=== PATIENT | male | born 1965 | race Caucasian/White ===

== ENCOUNTER 2022-06-14 21:09 | Emergency (ER) | payer OTHER ==
[2022-06-14] MEDS ORDERED: ASPIRIN 81 MG CHEW (CHILDREN'S ASA) PO ONE (21:30)
--- NOTE | 2022-06-14 21:35 | ED General ---
General Chief Complaint: General Problems/Pain Stated Complaint: SOA - VOMITING - FEVER - CHEST PRESSURE Nursing Triage Note: PT TO ER VIA PRIVATE VEHICLE FROM HOME WITH COMPLAINT OF HOT FLASHES, SOA, AND RIGHT SIDED CHEST PAIN SINCE THIS EVENING. PT IS [employer] AND AROUND ALL KINDS OF PEOPLE PER PATIENT. PT DENIES COVID OR FLU VACCINATIONS. PAIN WAS SHARP IN RIGHT CHEST AT A 7/10. PT DENIES CURRENT CHEST PAIN. Source of Information: Patient Exam Limitations: No Limitations History of Present Illness Date Seen by Provider: Jun 14, 2022 Time Seen by Provider: 21:15 Initial Comments Here with report of several incidences of flashes and shortness of air tonight with activity. He took a shower and was superhot short of breath after that. Ultimately decided to come in to be seen. Complains of some mild right-sided chest pain that has resolved. He does not have that now denies any pain in the past. He is not vaccinated for COVID. States [place] when this happened. States his reports that he has had some increasing shortness of air over time but today's events were abruptly due to. Denies sore throat, runny nose, cough, nausea, vomiting or diarrhea. Timing/Duration: 1-3 Hours Severity: Mild, Moderate Associated Systoms: Chest Pain; No Cough; Fever/Chills; No Headaches, No Nausea/Vomiting; Shortness of Air, Weakness Allergies and Home Medications Allergies Coded Allergies: Penicillins (Verified Allergy, Unknown, 06/14/22) Uncoded Allergies: gammaglobulin (Allergy, Unknown, 06/14/22) Patient Home Medication List Home Medication List Reviewed: Yes Review of Systems Review of Systems Constitutional: see HPI; No chills; fever EENTM: No nose congestion, No throat pain Respiratory: No cough; short of breath Cardiovascular: chest pain (Right-sided and aching but none now. Lasted several minutes); No edema Gastrointestinal: No diarrhea, No nausea, No vomiting Genitourinary: no symptoms reported Musculoskeletal: back pain, muscle pain Skin: no symptoms reported Psychiatric/Neurological: No Symptoms Reported All Other Systems Reviewed Negative Unless Noted: Yes Past Opsfkhg-Oqhkow-Dsiaut Hx Patient Social History Tobacco Use?: No Use of E-Cig and/or Vaping dev: No Substance use?: No Alcohol Use?: Yes Alcohol type: Beer, Hard Liquor Alcohol Frequency: Once in a while Pt feels they are or have been: No Immunizations Up To Date Influenza Vaccine Up-to-Date: No; Not Current Past Medical History Surgeries: No Respiratory: No Cardiac: Yes High Cholesterol, Hypertension Neurological: No Genitourinary: Yes Benign Prostatic Hyperpl Gastrointestinal: No Musculoskeletal: Yes Chronic Back Pain Endocrine: No Family Medical History Reviewed Nursing Family Hx Heart Disease, Hypertension Physical Exam Vital Signs Vital Signs - First Documented 06/14/22 21:17 Temp 36.3 Pulse 73 Resp 20 B/P (MAP) 160/94 (116) Pulse Ox 99 O2 Delivery Room Air Capillary Refill : Less Than 3 Seconds Height, Weight, BMI Height: '" Weight: lbs. oz. kg; BMI Method: General Appearance: No Apparent Distress, WD/WN HEENT: PERRL/EOMI, Pharynx Normal Neck: Non Tender, Supple Respiratory: Lungs Clear, Normal Breath Sounds Cardiovascular: Regular Rate, Rhythm, No Murmur Gastrointestinal: Non Tender, Soft Back: Normal Inspection, No CVA Tenderness, No Vertebral Tenderness Extremity: Normal Range of Motion, Non Tender Neurologic/Psychiatric: Alert, Oriented x3 Skin: Normal Color, Warm/Dry Progress/Results/Core Measures Suspected Sepsis SIRS Temperature: Pulse: 73 Respiratory Rate: 20 Laboratory Tests 06/14/22 21:20: White Blood Count 9.2 Blood Pressure 160 /94 Mean: 116 Laboratory Tests 06/14/22 21:20: Creatinine 0.97, INR Comment 0.9, Platelet Count 299, Total Bilirubin 0.4 Results/Orders Lab Results Laboratory Tests Test 06/14/22 21:20 06/14/22 21:55 Range/Units White Blood Count 9.2 4.3-11.0 10^3/uL Red Blood Count 4.56 4.30-5.52 10^6/uL Hemoglobin 14.0 13.3-17.7 g/dL Hematocrit 41 40-54 % Mean Corpuscular Volume 91 80-99 fL Mean Corpuscular Hemoglobin 31 25-34 pg Mean Corpuscular Hemoglobin Concent 34 32-36 g/dL Red Cell Distribution Width 13.4 10.0-14.5 % Platelet Count 299 130-400 10^3/uL Mean Platelet Volume 9.2 9.0-12.2 fL Immature Granulocyte % (Auto) 0 % Neutrophils (%) (Auto) 60 42-75 % Lymphocytes (%) (Auto) 28 12-44 % Monocytes (%) (Auto) 8 0-12 % Eosinophils (%) (Auto) 3 0-10 % Basophils (%) (Auto) 1 0-10 % Neutrophils # (Auto) 5.6 1.8-7.8 10^3/uL Lymphocytes # (Auto) 2.6 1.0-4.0 10^3/uL Monocytes # (Auto) 0.7 0.0-1.0 10^3/uL Eosinophils # (Auto) 0.3 0.0-0.3 10^3/uL Basophils # (Auto) 0.1 0.0-0.1 10^3/uL Immature Granulocyte # (Auto) 0.0 0.0-0.1 10^3/uL Prothrombin Time 12.7 12.2-14.7 SEC INR Comment 0.9 0.8-1.4 Activated Partial Thromboplast Time 30 24-35 SEC Sodium Level 141 135-145 MMOL/L Potassium Level 3.8 3.6-5.0 MMOL/L Chloride Level 106 98-107 MMOL/L Carbon Dioxide Level 22 21-32 MMOL/L Anion Gap 13 5-14 MMOL/L Blood Urea Nitrogen 25 H 7-18 MG/DL Creatinine 0.97 0.60-1.30 MG/DL Estimat Glomerular Filtration Rate 92 BUN/Creatinine Ratio 26 Glucose Level 84 70-105 MG/DL Calcium Level 9.9 8.5-10.1 MG/DL Corrected Calcium 8.5-10.1 MG/DL Magnesium Level 2.0 1.6-2.4 MG/DL Total Bilirubin 0.4 0.1-1.0 MG/DL Aspartate Amino Transf (AST/SGOT) 22 5-34 U/L Alanine Aminotransferase (ALT/SGPT) 29 0-55 U/L Alkaline Phosphatase 45 40-136 U/L Myoglobin 85.9 10.0-92.0 NG/ML Troponin I < 0.028 <0.028 NG/ML B-Type Natriuretic Peptide 34.0 <100.0 PG/ML Total Protein 7.8 6.4-8.2 GM/DL Albumin 4.7 H 3.2-4.5 GM/DL Influenza Type A (RT-PCR) Not Detected Not Detecte Influenza Type B (RT-PCR) Not Detected Not Detecte SARS-CoV-2 RNA (RT-PCR) Not Detected Not Detecte My Orders Orders - EMERSON DOMINGUEZ MD Ekg Tracing (06/14/22 21:20) Cbc With Automated Diff (06/14/22:) Magnesium (06/14/22:) Chest 1 View, Ap/Pa Only (06/14/22:) Ekg Tracing (06/14/22:) Comprehensive Metabolic Panel (06/14/22) Myoglobin Serum (06/14/22) Protime With Inr (06/14/22) Partial Thromboplastin Time (06/14/22) O2 (06/14/22) Monitor-Rhythm Ecg Trace Only (06/14/22) Lipid Panel (06/15/22 06:00) Ed Iv/Invasive Line Start (06/14/22:) Bnp Godwin (06/14/22) Troponin I Godwin (06/14/22:) Aspirin Chewable Tablet (Baby Aspirin Ch (06/14/22 21:30) Influenza A And B By Pcr (06/14/22) Covid 19 Inhouse Test (06/14/22:) Vital Signs/I&O 06/14/22 06/14/22 21:17 21:17 Temp 36.3 Pulse 73 Resp 20 B/P (MAP) 160/94 (116) Pulse Ox 99 O2 Delivery Room Air Room Air Capillary Refill : Less Than 3 Seconds Blood Pressure Mean: 116 Progress Note : Progress Note Seen and evaluated. Chest pain protocol initiated. We have ordered chest x- ray, EKG, CBC, CMP, troponin and BNP. We will go ahead and check COVID and influenza testing. ASA 324 mg p.o. ordered. Monitor patient. 2328: Overall normal labs including CBC, chemistry, troponin and BNP. Chest x-ray single view shows no acute findings as interpreted by me. Pending radiology review. I did discuss all the findings with the patient and family. They are more comfortable now. They are comfortable going home. [facility] Discharged home with return precautions. Patient verbalized understanding instructions and agreement with plan. ECG Initial ECG Impression Date: Jun 14, 2022 Initial ECG Impression Time: 21:29 Initial ECG Rate: 67 Initial ECG Rhythm: Normal Sinus Initial ECG Intervals: Normal Initial ECG Impression: Normal Initial ECG Comparisson: No Previous ECG Available Comment Sinus rhythm with normal axis. No evidence of ST elevation VT. Interpreted by me. Diagnostic Imaging Diagonstic Imaging: Xray Plain Films/CT/US/NM/MRI: chest Comments Single view chest x-ray shows no acute findings on my interpretation. Pending radiology review. Departure Impression Primary Impression: Viral syndrome Additional Impression: Dyspnea Qualified Codes: R06.09 - Other forms of dyspnea Disposition: HOME, SELF-CARE Condition: Improved Departure-Patient Inst. Decision time for Depature: 23:30 Patient Instructions: Shortness of Breath (Dyspnea) (DC), Upper Respiratory Infection ED Add. Discharge Instructions: All discharge instructions reviewed with patient and/or family. Voiced understanding. Your symptoms may be related to impending viral syndrome. Continue to drink appropriate amount of fluids and to continue normal diet. [facility] and [facility] evaluation and discuss cardiac stress test as needed. They can do other testing as needed as well. Return for worse pain, fever, vomiting, weakness, breathing problems or other concerns as needed. EMERSON DOMINGUEZ MD Jun 14, 2022 21:35
[2022-06-14 21:37] LABS: BASOPHILS # (AUTO) 0.1 10^3/uL (0.0-0.1); BASOPHILS % (AUTO) 1 % (0-10); EOSINOPHILS # (AUTO) 0.3 10^3/uL (0.0-0.3); EOSINOPHILS % (AUTO) 3 % (0-10); HEMATOCRIT 41 % (40-54); LYMPHOCYTES # (AUTO) 2.6 10^3/uL (1.0-4.0); LYMPHOCYTES % (AUTO) 28 % (12-44); MEAN CORPUSCULAR HEMOGLOBIN 31 pg (25-34); MEAN CORPUSCULAR HGB CONC 34 g/dL (32-36); MEAN CORPUSCULAR VOLUME 91 fL (80-99); MEAN PLATELET VOLUME 9.2 fL (9.0-12.2); MONOCYTES # (AUTO) 0.7 10^3/uL (0.0-1.0); MONOCYTES % (AUTO) 8 % (0-12); NEUTROPHILS # (AUTO) 5.6 10^3/uL (1.8-7.8); NEUTROPHILS % (AUTO) 60 % (42-75); PLATELET COUNT 299 10^3/uL (130-400); WHITE BLOOD COUNT 9.2 10^3/uL (4.3-11.0)
[2022-06-14 21:45] LABS: INR 0.9 (0.8-1.4); PROTHROMBIN TIME PATIENT 12.7 SEC (12.2-14.7)
[2022-06-14 21:47] LABS: ALANINE AMINOTRANSFERASE 29 U/L (0-55); ALBUMIN 4.7 GM/DL (3.2-4.5); ALKALINE PHOSPHATASE 45 U/L (40-136); BILIRUBIN,TOTAL 0.4 MG/DL (0.1-1.0); BUN/CREATININE RATIO 26; CALCIUM 9.9 MG/DL (8.5-10.1); CARBON DIOXIDE 22 MMOL/L (21-32); CHLORIDE 106 MMOL/L (98-107); CREATININE SERUM 0.97 MG/DL (0.60-1.30); GFR ESTIMATED 92; GLUCOSE 84 MG/DL (70-105); POTASSIUM 3.8 MMOL/L (3.6-5.0); SODIUM 141 MMOL/L (135-145); TOTAL PROTEIN 7.8 GM/DL (6.4-8.2)
[2022-06-14 23:45] VITALS: BP 114/76
--- NOTE | 2022-06-15 08:06 | Diagnostic Imaging Report ---
EXAMINATION: Chest 1 view HISTORY: Chest pain. COMPARISON: None available. FINDINGS: The lung volumes are normal. Patchy perihilar opacities are seen bilaterally. No large pleural effusion or pneumothorax is seen. The cardiomediastinal silhouette is normal in size and contour. No acute osseous abnormality is seen. IMPRESSION: 1. Patchy perihilar opacities bilaterally, which can be seen with infection, atelectasis, and/or edema. Dictated by: Dictated on workstation # [id number]
== END 2022-06-14 23:45 | disposition home or self-care (01) ==
LOC: ER 21:11
DX: B34.9 Viral infection, unspecified (principal); R06.09 Other forms of dyspnea; Z28.310 Unvaccinated for COVID-19; Z20.822 Contact with and (suspected) exposure to COVID-19
CPT/HCPCS: 36415; 71045; 80053; 83735; 83874; 83880; 84484; 85025; 85610; 85730; 87636; 93005; 93041

== ENCOUNTER → 2022-07-21 | Outpatient (CLI) | payer OTHER ==
--- NOTE | 2022-07-21 10:48 | Diagnostic Imaging Report ---
INDICATION: Right knee pain. TECHNIQUE: Four views of the right knee. CORRELATION STUDY: None. FINDINGS: Medial and lateral compartments are fairly well-maintained with the articular surfaces smooth. There is no acute bony abnormality. There is a small ununited spur-like density of the superior pole of the patella, likely of no acute significance. Small suprapatellar joint effusion. Soft tissue edema over the anterior aspect of the knee is present. IMPRESSION: Negative for acute bony abnormality of the knee. Dictated by: Dictated on workstation # [id number]
== END ==
LOC: ORTHO 09:47
PROVIDERS: ATTEND Orthopaedic Surgery
DX: M25.561 Pain in right knee (principal)
CPT/HCPCS: 73564; 99203

== ENCOUNTER → 2022-07-28 | Outpatient (CLI) | payer OTHER ==
[~2022-07-28] MED LIST: CATHETER FLUSH 10 ML SYR IVP PRN; REGADENOSON 0.4 MG/5 ML SYR (LEXISCAN) IV ONE
[2022-07-28 08:47] VITALS: BP 134/87
--- NOTE | 2022-07-28 19:41 | STRESS TEST ---
DATE OF SERVICE: 07/28/2022 RESTING AND POST REGADENOSON TECHNETIUM-99M TETROFOSMIN SPECT CT IMAGING ORDERING PHYSICIAN: DILLON Christie CLINICAL DIAGNOSIS: Chest pain. Baseline images were carried out after injection of 10.5 mCi of technetium-99 technetium-99m Tetrofosmin. This was followed by 0.4 mg of regadenoson and 31.1 mCi of technetium-99m tetrofosmin for stress imaging. The electrocardiogram showed a sinus rhythm at baseline. It did not change significantly with the regadenoson infusion. The patient noted some shortness of breath, which resolved in a few minutes. Review of images at rest and following stress does not indicate any significant perfusion defects consistent with significant myocardial ischemia or infarction. Gated images showed normal global left ventricular systolic function with normal regional wall motion. Left ventricular ejection fraction is calculated to be 72%. CONCLUSIONS: 1. No evidence of significant myocardial ischemia or infarction on this study. 2. Normal regional wall motion, normal global left ventricular systolic function with a calculated ejection fraction 72%. Job ID: [id number] DocumentID: [id number] Dictated Date: 07/28/2022 16:32:43 Home Administrator Date: 07/28/2022 19:39:00 Dictated By: NOAM CRUZ MD; MARY; FACP; FACC;
== END ==
LOC: CARD 07:29
PROVIDERS: ATTEND Nurse Practitioner
DX: R07.9 Chest pain, unspecified (principal)
CPT/HCPCS: 78452; 93017

== ENCOUNTER → 2022-08-12 | Outpatient (CLI) | payer OTHER ==
--- NOTE | 2022-08-12 08:29 | Diagnostic Imaging Report ---
EXAMINATION: CT chest without contrast. TECHNIQUE: Multiple contiguous axial images were obtained through the chest without the use of intravenous contrast. All CT scans use one or more of the following dose optimizing techniques: automated exposure control, MA and/or KvP adjustment based on patient size and exam type or iterative reconstruction. HISTORY: DYSPNEA COMPARISON: None available. FINDINGS: Thyroid: The thyroid is normal. Mediastinum: Heart size is normal without significant pericardial effusion. The aorta is normal in caliber. No suspicious lymphadenopathy. Lungs and airways: The lungs are clear without consolidation, pleural effusion, or pneumothorax. No suspicious pulmonary lesion. There is calcified granuloma within the left upper lobe. The airways are normal. Upper abdomen: The subphrenic structures are normal. Musculoskeletal: Degenerative changes of the spine without suspicious osseous lesion or compression fracture. IMPRESSION: 1. No acute abnormality in the chest. Dictated by: Dictated on workstation # [id number]
== END ==
LOC: RAD FS 07:54
PROVIDERS: ATTEND Nurse Practitioner
DX: Z01.89 Encounter for other specified special examinations (principal)
CPT/HCPCS: 71250